=== PATIENT | male | born 1995 | race African-American/Black ===

== ENCOUNTER 2018-08-03 16:42 | Emergency (ER) | payer SELFPAY ==
[~2018-08-03] VITALS: Ht 177.8 cm; Wt 79.4 kg
[~2018-08-03 16:42] MED LIST: KEFLEX500 MG PO; MOTRIN800 MG PO; NKHM
[2018-08-03 16:43] VITALS: BP 135/80
[2018-08-03] MEDS ORDERED: SEPTDS PO (17:22)
== END 2018-08-03 17:19 | disposition home or self-care (01) ==
LOC: ED 16:42
DX: L02.415 Cutaneous abscess of right lower limb (principal); Z86.14 Personal history of Methicillin resistant Staphylococcus aureus infection